=== PATIENT | male | born 1985 | race Caucasian/White ===

== ENCOUNTER 2024-01-07 08:18 | Emergency (ER) | payer OTHER, SELFPAY ==
[2024-01-07 08:24] VITALS: BP 125/86
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
[2024-01-07] MEDS: DECADRON 10 MG PO (09:57)
[2024-01-07 10:14] VITALS: BP 129/78
== END 2024-01-07 10:14 | disposition home or self-care (01) ==
LOC: EMR 08:18
PROVIDERS: EMERGENCY PHYSICIAN Student in an Organized Health Care Education/Training Program; FAMILY PHYSICIAN Internal Medicine
DX: M54.42 Lumbago with sciatica, left side (principal); K21.9 Gastro-esophageal reflux disease without esophagitis; D66 Hereditary factor VIII deficiency; F41.8 Other specified anxiety disorders; F17.200 Nicotine dependence, unspecified, uncomplicated
CPT/HCPCS: 99282

== ENCOUNTER → 2024-01-31 13:33 | Outpatient (REF) | payer OTHER, SELFPAY | LOC: HWRAD 13:33 | PROVIDERS: ATTENDING PHYSICIAN Internal Medicine | DX: K57.92 Diverticulitis of intestine, part unspecified, without perforation or abscess without bleeding (principal) | CPT/HCPCS: 74177; Q9967 ==

== ENCOUNTER 2024-04-24 06:40 | Emergency (ER) | payer BC, SELFPAY ==
[2024-04-24 06:45] VITALS: BP 112/90
[2024-04-24 07:11] LABS: % Basophils 0.9 % (0-2); % Eosinophils 2.4 % (0-6); % Immature Granulocytes 0.6 % (0-0.5); % Monocytes 10.7 % (1.7-9.3); % Neutrophils 63.4 % (42.2-75.2); Absolute Basophils 0.1 10^3/uL (0-0.2); Absolute Eosinophils 0.2 10^3/uL (0-0.7); Absolute Immature Granulocytes 0.1 10^3/uL (0-0.05); Absolute Neutrophils 5.9 10^3/uL (1.4-6.5); Hematocrit 44.1 % (39.0-52.0); Hemoglobin 15.4 g/dL (13.0-18.0); Mean Corp Hgb Conc. 34.9 g/dL (33.0-37.0); Mean Corpuscular Hgb 31.1 pg (27.0-31.0); Mean Corpuscular Volume 89.1 fL (80.0-94.0); Mean Platelet Volume 8.9 fL (7.4-10.4); Nucleated Red Blood Cells % 0 % (-); Platelet Count 294 10^3/uL (130-400); Red Blood Cell Count 4.95 10^6/uL (4.70-6.10); Red Cell Dist. Width 14.1 % (11.5-14.5); White Blood Cell Count 9.3 10^3/uL (4.8-10.8)
[2024-04-24 07:14] LABS: Carboxyhemoglobin 3.3 %
[2024-04-24 07:23] LABS: ALT (SGPT) 113 U/L (0-50); AST (SGOT) 64 U/L (17-59); Albumin 4.4 g/dl (3.5-5.0); Alkaline Phosphatase 58 U/L (38-126); Blood Urea Nitrogen 15 mg/dl (9-20); Calcium 9.2 mg/dl (8.4-10.2); Carbon Dioxide 24 mmol/L (22-30); Chloride 108 mmol/L (98-107); Glucose 101 mg/dl (70-99); Potassium 4.3 mmol/L (3.5-5.1); Sodium 141 mmol/L (135-145); Total Bilirubin 0.6 mg/dl (0.2-1.3); Total Protein 6.9 g/dl (6.3-8.2); eGFR > 60.00
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
[2024-04-24] MEDS: ZITHROMAX 500 MG PO (07:56)
[2024-04-24] MEDS: DECADRON 10 MG IV (07:56)
[2024-04-24] MEDS: DUONEB 3 ML INH (07:56)
[2024-04-24 09:59] VITALS: BP 115/81
== END 2024-04-24 10:18 | disposition home or self-care (01) ==
LOC: EMR 06:40
PROVIDERS: EMERGENCY PHYSICIAN Student in an Organized Health Care Education/Training Program; FAMILY PHYSICIAN Internal Medicine
DX: T59.891A Toxic effect of other specified gases, fumes and vapors, accidental (unintentional), initial encounter (principal); J68.0 Bronchitis and pneumonitis due to chemicals, gases, fumes and vapors; D66 Hereditary factor VIII deficiency
CPT/HCPCS: 96374; 94640; 99285; 71046; 80053; 82375; 85025; 93005